=== PATIENT | male | born 1940 | race Caucasian/White ===

== ENCOUNTER 2018-11-20 11:58 | Emergency (ER) | payer MEDICARE, OTHER ==
[~2018-11-20] VITALS: Ht 180.3 cm; Wt 60.0 kg
[2018-11-20 12:01] VITALS: Ht 180.3 cm; Wt 60.0 kg
--- NOTE | 2018-11-20 12:02 | ERD ---
ER Documentation Chief Complaint Chief Complaint weakness HPI The patient is a 78-year-old male, presenting to the ER for the street. He signed AGAINST MEDICAL ADVICE from [facility] today, where he stayed for about a month due to pulmonary edema. He had his belongings and left the hospital but did not make it far. He was brought back to the hospital from the street by a bystander. He is unable to provide any significant history; he only knows his name Past medica history: h/o CHF, CKD, dementia, psychiatric illness. Past surgical history/social history/review of system: Unable to obtain due to his condition Medications Home Meds Reported Medications Ropinirole Hcl* (Ropinirole Hcl*) 0.5 Mg Tablet, 0.5 MG PO HS, TAB 11/20/18 Hydralazine Hcl* (Hydralazine Hcl*) 50 Mg Tab, 100 MG PO TID, #180 TAB 11/20/18 B Complex With Vitamin C (B-COMPLEX WITH VITAMIN C) 1 Each Tablet, 1 TAB PO DAILY, #30 TAB 11/20/18 Sucralfate* (Carafate*) 1 Gm Tab, 1 GM PO TID, TAB 11/20/18 Dextran 70/Hypromellose (Artificials Tears Drops) 30 Ml Drops, 1 DROP OP QID PRN for DRY EYES, BOTTLE 11/20/18 Pantoprazole* (Pantoprazole*) 40 Mg Tablet.dr, 40 MG PO AC BREAKFAST, TAB 11/20/18 Ondansetron Hcl* (Ondansetron Hcl* Inj) 4 Mg/2 Ml Vial, 4 MG IV Q6 PRN for NAUSEA AND/OR VOMITING, VIAL 11/20/18 Nifedipine* (Nifedipine ER*) 60 Mg Tablet.sa, 60 MG PO DAILY, TAB.SA 11/20/18 Multivits,Ca,Minerals/Iron/FA (Thera M Plus Tablet) 1 Each Tablet, 1 TAB PO DAILY, TAB 11/20/18 Metolazone* (Metolazone*) 10 Mg Tablet, 10 MG PO DAILY, TAB 11/20/18 Benzocaine/Menthol* (Cepacol* Sore Throat Lozenges) 1 Each Lozenge, 1 LOZENGE MM Q1H PRN for SORE THROAT, LOZENGE 11/20/18 Linagliptin (TRADJENTA) 5 Mg Tablet, 5 MG PO QAM, TAB 11/20/18 Levothyroxine Sodium* (Levoxyl*) 100 Mcg Tablet, 100 MCG PO BEFORE BREAKFAST, #30 TAB 11/20/18 Isosorbide Mononitrate* (Isosorbide Mononitrate*) 30 Mg Tab.er.24h, 30 MG PO DAILY, TAB 11/20/18 Insulin Aspart* (Novolog Insulin Pen*) 100 Unit/Ml Soln, 0-12 SC .SLIDING SCALE AC, EA 11/20/18 Insulin Glargine* (Lantus*) 100 Unit/Ml Soln, 8 UNIT SC QHS, #1 VIAL 11/20/18 Heparin Sodium,Porcine/Pf (HEPARIN SOD 5,000 UNIT/ 0.5 ML) 5,000 Unit/0.5 Ml Vial, 5000 UNIT IJ Q12, VIAL 11/20/18 Gabapentin* (Gabapentin*) 300 Mg Capsule, 300 MG PO BID, #60 CAP 11/20/18 Finasteride* (Finasteride*) 5 Mg Tablet, 5 MG PO DAILY, TAB 11/20/18 Ergocalciferol (Vitamin D2) (VITAMIN D2) 50,000 Unit Capsule, 42883 UNIT PO WE EKLY for MONDAYS, CAP 11/20/18 Duloxetine Hcl* (Duloxetine Hcl*) 60 Mg Capsule.dr, 60 MG PO DAILY, #30 CAP 11/20/18 Docusate Sodium* (Colace*) 100 Mg Capsule, 100 MG PO DAILY, #30 CAP 11/20/18 Divalproex Sodium* (Divalproex Sodium*) 125 Mg Cap.sprink, 125 MG PO TID, #120 CAP 11/20/18 Dextrose* (D50W Syringe*) 50 Ml Soln, 50 ML INJ ACHS A for FOR BS<60, EA 11/20/18 Cyanocobalamin* (Vitamin B-12*) 1,000 Mcg Tablet.sa, 1000 MCG PO DAILY, TAB 11/20/18 Clopidogrel Bisulfate (Clopidogrel) 75 Mg Tablet, 75 MG PO DAILY, #30 TAB 11/20/18 Cholecalciferol* (Vitamin D*) 400 Unit Tablet, 400 UNIT PO DAILY, TAB 11/20/18 Carvedilol* (Coreg*) 12.5 Mg Tablet, 12.5 MG PO BID, #60 TAB 11/20/18 Atorvastatin Calcium (Atorvastatin Calcium) 10 Mg Tablet, 10 MG PO QHS, #30 TAB 11/20/18 Aspirin* (Aspirin* EC) 81 Mg Tablet.dr, 81 MG PO DAILY, TAB 11/20/18 Albuterol Sulfate* (Albuterol Sulfate* Neb) 0.083%-3 Ml Neb, 2.5 MG NEB Q6 PRN for WHEEZING AND SOB, #30 VIAL 11/20/18 Acetaminophen* (Acetaminophen* Susp) 325 Mg/10.15 Ml Solution, 650 MG PO Q6 PRN for PAIN OR TEMP ABOVE 38C, ML 11/20/18 Discontinued Reported Medications Cyanocobalamin/FA/Pyridoxine (B Complex-Folic Acid Tablet) 1 Each Tablet, 1 EACH PO, TAB 11/20/18 Allergies Allergies: Coded Allergies: Penicillins (Unverified Allergy, Unknown, 11/03/18) meclizine (Unverified Allergy, Unknown, 11/03/18) Physical Exam Vitals Vital Signs Date Temp Pulse Resp B/P (MAP) Pulse Ox O2 O2 Flow FiO2 Time Delivery Rate 11/20/18 98.1 81 18 138/57 98 12:01 (84) Physical Exam Const: No acute respiratory distress. Head: Atraumatic. Eyes: Normal Conjunctiva. ENT: Normal External Ears, Nose and Mouth. Neck: Full range of motion. No meningismus. Resp: Clear to auscultation bilaterally. Cardio: Regular rate and rhythm Abd: Soft, non distended, normal bowel sounds, non tender. Skin: No petechiae or rashes. Back: No midline or flank tenderness. Ext: No cyanosis, or edema. Neur: Awake. No focal deficit Psych: Agitated, confused Result Diagram: 11/20/18 1635 11/20/18 1635 Results 24 hrs Laboratory Tests Test 11/20/18 16:35 White Blood Count 9.0 10^3/ul Red Blood Count 3.64 10^6/ul Hemoglobin 9.2 g/dl Hematocrit 29.8 % Mean Corpuscular Volume 81.9 fl Mean Corpuscular Hemoglobin 25.3 pg Mean Corpuscular Hemoglobin Concent 30.9 g/dl Red Cell Distribution Width 16.6 % Platelet Count 147 10^3/UL Mean Platelet Volume 11.0 fl Immature Granulocytes % 0.400 % Neutrophils % 79.5 % Lymphocytes % 10.4 % Monocytes % 8.8 % Eosinophils % 0.7 % Basophils % 0.2 % Nucleated Red Blood Cells % 0.0 /100WBC Immature Granulocytes # 0.040 10^3/ul Neutrophils # 7.2 10^3/ul Lymphocytes # 0.9 10^3/ul Monocytes # 0.8 10^3/ul Eosinophils # 0.1 10^3/ul Basophils # 0.0 10^3/ul Nucleated Red Blood Cells # 0.0 10^3/ul Sodium Level 140 mmol/L Potassium Level 4.4 mmol/L Chloride Level 108 mmol/L Carbon Dioxide Level 22 mmol/L Anion Gap 10 Blood Urea Nitrogen 25 mg/dl Creatinine 3.39 mg/dl Est Glomerular Filtrat Rate mL/min mL/min Glucose Level 127 mg/dl Calcium Level 8.6 mg/dl Total Bilirubin 0.2 mg/dl Direct Bilirubin 0.00 mg/dl Indirect Bilirubin 0.2 mg/dl Aspartate Amino Transf (AST/SGOT) 21 IU/L Alanine Aminotransferase (ALT/SGPT) 23 IU/L Alkaline Phosphatase 109 IU/L B-Type Natriuretic Peptide 9920 PG/ML Total Protein 6.2 g/dl Albumin 3.3 g/dl Globulin 2.90 g/dl Albumin/Globulin Ratio 1.13 Salicylates Level < 1.0 mg/dl Acetaminophen Level < 10.0 ug/ml Ethyl Alcohol Level < 10.0 mg/dl Current Medications Medications Dose Sig/Aron Start Time Status Last (Trade) Ordered Route PRN Stop Time Admin Dose Reason Admin Haloperidol 0.25 mg BID PO 11/20/18 (Haldol) 21:00 Clonidine 0.1 mg BID PO 11/20/18 (Catapres) 21:00 Melatonin 6 mg HS PO 11/20/18 (Melatonin) 21:00 Procedures/[place] [id number] Radiology Main Line: [phone] DIAGNOSTIC IMAGING REPORT Patient: ELOISA AN : 1940 Age: 78 Sex: M MR #: [id number] DOS: 11/20/18 1205 Ordering MD: OCTAVIO STEWART MD Location: E/R Room/Bed: PROCEDURE: CT Brain without contrast. CLINICAL INDICATION: Altered level of consciousness TECHNIQUE: A CT of the brain was performed on a GE [employer]peed 64-slice CT scanner utilizing axial imaging from the skull base through the vertex without IV contrast. Multiplanar reformatted images were made. Images were reviewed on a PACS workstation. The CTDIvol is 38.2 mGy and the DLP is 634.23 mGycm. One or more the following dose reduction techniques were utilized: Automated exposure control, adjustment of mA/ or kV according to patient's size, or use of iterative reconstruction technique. DICOM images are available for review. COMPARISON: SD CT BRAIN 11/01/2018 FINDINGS: There is no intracranial hemorrhage, mass effect, or midline shift. the ventricles and sulci are prominent with ventricle slightly more than the sulci with confluent hypoattenuation throughout the periventricular white matter. There is good frank-white matter differentiation throughout the cerebral hemispheres. The visualized brainstem and cerebellum are unremarkable. No extra-axial fluid collection is seen. The visualized paranasal sinuses and osseous structures are grossly unremarkable. IMPRESSION: No evidence of acute intracranial pathology. There is moderate generalized volume loss with a component of central atrophy with microvascular changes, stable. RPTAT: [facility] Physician Neda Date Time Electronically viewed and signed by Physician Neda on 11/20/2018 13:43 RL/ CC: OCTAVIO STEWART MD [id number] [place] [id number] Radiology Main Line: [phone] DIAGNOSTIC IMAGING REPORT Patient: ELOISA AN : 1940 Age: 78 Sex: M MR #: [id number] DOS: 11/20/18 1205 Ordering MD: OCTAVIO STEWART MD Location: E/R Room/Bed: PROCEDURE: XR Chest. CLINICAL INDICATION: Short of breath TECHNIQUE: AP Portable chest. COMPARISON: SD CR CHEST 11/01/2018; CR CHEST 10/30/2018; SD CR CHEST 10/29/2018; DX CHEST 10/28/2018; SD DX CHEST 09/30/2018 FINDINGS: The cardiomediastinal silhouette is normal. Again seen are prominent bihilar interstitial densities extending from the brigette, slightly improved. Patchy density is seen in the right lower lobe extending to the right hemidiaphragm there is partial obscuration. Patchy ground-glass density is also seen within the left hemidiaphragm. The osseous structures are unremarkable. IMPRESSION: There is likely mild pulmonary venous congestion with patchy bilateral lower lobe atelectasis or possibly early infiltrate as there is partial obscuration of the right hemidiaphragm. RPTAT: [facility] Physician Neda Date Time Electronically viewed and signed by Physician Neda on 11/20/2018 13:44 RL/ CC: OCTAVIO STEWART MD [id number] EKG: Read by emergency physician Rate/Rhythm: Normal Sinus Rhythm 78 beats per min QRS, ST, T-waves: No ST elevation, no T wave inversion Impression: Normal EKG MEDICAL MAKING DECISION: The patient is a 78-year-old male, presenting with acute agitation and left again medical advice. Initially he declined all the blood tests. We were unable to clear him medically He was evaluated by telepsychiatrist who recommended involuntary hold due to acute delirium. He recommended haloperidol and clonidine and melatonin. His recommended medications were carried out. The patient was later agreed for the blood test. Consultation: I discussed the patient with his physicians Dr. Torres at 12:40 PM and again with Dr. Phillip at 5:40 PM, who agreed to clear him medically. His CHF is chronic and his blood tests are basically chronic according to his ph ysicians. He is now cleared for psychiatric admission The differential diagnoses considered include but are not limited to delirium, decompensated psychiatric illness, medical noncompliance, anxiety attack, panic attack Departure Diagnosis: Primary Impression: Factitious illness (psychological) Additional Impressions: Chronic CHF Anemia Condition: Stable Comments He is cleared for psychiatric admission OCTAVIO STEWART MD Nov 20, 2018 12:02
--- NOTE | 2018-11-20 14:29 | PSY ---
Date/Time of Note Date/Time of Note DATE: 11/20/18 TIME: 14:22 Psychiatric Subjective Eval Subjective Evaluation Chief Complaint: ALOC found on the side of [place] by bystanders Reason for consult: Confused History of present illness The patient is a 78-year-old male, presenting to the ER for the street. He signed AGAINST MEDICAL ADVICE from [facility] today, where he stayed for about a month due to pulmonary edema. He had his belongings and left the hospital but did not make it far. He was brought back to the hospital from the street by a bystander. He is unable to provide any significant history; he only knows his name Hospitalization: other (unable to obtain) Family History unknown Medical history COPD, pulmonary effusion. Allergies: Coded Allergies: Penicillins (Unverified Allergy, Unknown, 11/03/18) meclizine (Unverified Allergy, Unknown, 11/03/18) Substance Abuse Substance use: other (unknown) Social History Marital status: single DPA/Conservatorship: No Occupation/Group Home: unknown Psychiatric Objective Eval Review of Systems: Other: Confused oriented to name only. Physical Examination: Energy: Other (unable to assess) Interest: Other (unable to assess) Mental Status Examination: Appearance: Poor Hygiene Eye Contact: None Psychomotor Activity: Slow Behavior: Guarded Speech: Disorganized AFFECT: Anxious Mood: Irritable Though Process: Loose Thought Content: Other (Confused, rapid thoughts. ) Assessment and Plan Assessment/Diagnosis Diagnosis Delirium secondary to medical condition. Recommendation/Plan Medication Management Haldol 0.25mg po bid Clonidine 0.1mg po bid Melatonin 6m po pm. Multiple antipsychotics: No Discharge Disposition: Other (Medicine Inpatient) Legal Status: Place involuntary hold (The patient does actually meet 5150 criteria as he is delirious and not psychotic. He is medically incompetent. He has not been medically cleared. He would benefit with a sitter due to his confused status. ) RACHEL ALFRED MD Nov 20, 2018 14:29
[2018-11-20] MEDS ORDERED: ATOR10TA65 PO (14:47)
[2018-11-20] MEDS ORDERED: DEXT50DI2 INJ (14:47)
[2018-11-20] MEDS ORDERED: ALBU2.5V3 NEB (14:47)
[2018-11-20] MEDS ORDERED: ACET325S PO (14:47)
[2018-11-20] MEDS ORDERED: CLOP75TA27 PO (14:47)
[2018-11-20] MEDS ORDERED: CARV12.598 PO (14:47)
[2018-11-20] MEDS ORDERED: ASPI-817 PO (14:47)
[2018-11-20] MEDS ORDERED: DIVA125C2 PO (14:47)
[2018-11-20] MEDS ORDERED: CHOL400T10 PO (14:47)
[2018-11-20] MEDS ORDERED: CYAN100080 PO (14:47)
[2018-11-20] MEDS ORDERED: PANT40TA4 PO (14:59)
[2018-11-20] MEDS ORDERED: LINA5TAB PO (14:59)
[2018-11-20] MEDS ORDERED: DOCU-144 PO (14:59)
[2018-11-20] MEDS ORDERED: ERGO500013 PO (14:59)
[2018-11-20] MEDS ORDERED: BENZ1LOZ52 MM (14:59)
[2018-11-20] MEDS ORDERED: ISOS30TA67 PO (14:59)
[2018-11-20] MEDS ORDERED: DEXT30DR5 OP (14:59)
[2018-11-20] MEDS ORDERED: SUCR1TAB56 PO (14:59)
[2018-11-20] MEDS ORDERED: MULT-843 PO (14:59)
[2018-11-20] MEDS ORDERED: ONDA4VIA6 IV (14:59)
[2018-11-20] MEDS ORDERED: NIFE60TA18 PO (14:59)
[2018-11-20] MEDS ORDERED: NOVO3I SC (14:59)
[2018-11-20] MEDS ORDERED: FINA5TAB4 PO (14:59)
[2018-11-20] MEDS ORDERED: LANT3I SC (14:59)
[2018-11-20] MEDS ORDERED: GABA300C16 PO (14:59)
[2018-11-20] MEDS ORDERED: DULO60CA59 PO (14:59)
[2018-11-20] MEDS ORDERED: METO10TA6 PO (14:59)
[2018-11-20] MEDS ORDERED: LEVO100T82 PO (14:59)
[2018-11-20] MEDS ORDERED: HEPA500021 IJ (14:59)
[2018-11-20] MEDS ORDERED: CYAN1TAB20 PO (15:03)
[2018-11-20] MEDS ORDERED: B CO PO (15:03)
[2018-11-20] MEDS ORDERED: HYDR-3672 PO (15:03)
[2018-11-20] MEDS ORDERED: ROPI0.5T2 PO (15:05)
[2018-11-20] MEDS ORDERED: HALOPERIDOL 1 MG TAB PO SCH (21:00)
[2018-11-20] MEDS ORDERED: MELATONIN 3 MG TABLET PO SCH (21:00)
[2018-11-20 22:05] VITALS: BP 138/57; PULSE 94; RESP 18
== END 2018-11-20 22:13 | disposition short-term general hospital (02) ==
LOC: E/R 11:58 → CANBEDREQ 17:53 → E/R 22:13
DX: I50.9 Heart failure, unspecified (principal); F68.10 Factitious disorder imposed on self, unspecified; D64.9 Anemia, unspecified; N18.9 Chronic kidney disease, unspecified; R41.82 Altered mental status, unspecified; Z79.4 Long term (current) use of insulin; Z79.82 Long term (current) use of aspirin
CPT/HCPCS: 70450; 71045; 80053; 80307; 83880; 85025; 93005